=== PATIENT | female | born 1985 | race Caucasian/White ===

== ENCOUNTER 2021-09-18 10:40 | Emergency (ER) | payer OTHER | END 2021-09-18 12:07 | disposition home or self-care (01) | LOC: FER 10:40 | DX: T58.91XA Toxic effect of carbon monoxide from unspecified source, accidental (unintentional), initial encounter (principal); I10 Essential (primary) hypertension; Z88.5 Allergy status to narcotic agent | CPT/HCPCS: 36600; 82803 ==